=== PATIENT | female | born 1985 | race Caucasian/White ===

== ENCOUNTER 2017-05-18 08:51 | Day surgery (SDC) | payer BC ==
[~2017-05-18 08:51] MED LIST: RINGER'S SOLUTION,LACTATED 1,000 ML IV PRN
[2017-05-18 09:12] LABS: Hematocrit 40.6 % (37.0-47.0); Hemoglobin 13.6 gm/dL (12.5-16.0); Mean Cell Volume 89.2 fl (78-100); Mean Corpuscular Hemoglobin 29.9 pg (27-31); Mean Corpuscular Hgb Conc 33.5 g/dl (32-36); Mean Platelet Volume 9.6 fl (6.0-9.5); Neutrophil # 2.1 K/mm3 (1.3-6.0); Neutrophil % 42.6 % (42-75.0); Platelet Count 250 K/mm3 (150-450); Red Blood Count 4.55 M/mm3 (4.2-5.4); Red Cell Distribution Width 12.4 % (11.5-14.0)
[2017-05-18] MEDS ORDERED: RINGER'S SOLUTION,LACTATED 1,000 ML IV ONE ×4 (09:29→14:11)
[2017-05-18] MEDS ORDERED: LIDOCAINE HCL/EPINEPHRINE 30 ML VIAL IJ ONE ×2 (10:50)
[2017-05-18] MEDS ORDERED: IBUPROFEN 600 MG TABLET PO PRN (11:54)
[2017-05-18] MEDS ORDERED: oxyCODONE HCL/ACETAMINOPHEN 1 TAB TABLET PO PRN (11:54)
[2017-05-18] MEDS ORDERED: HYDROmorphone HCL 2 MG/ML VIAL IV PRN (12:09)
[2017-05-18] MEDS ORDERED: HYDROmorphone HCL 1 MG/ML DISP.SYRIN IV PRN (12:30)
--- NOTE | 2017-05-18 13:30 | OR ---
Operative Report - Dictated Report Narrative: Operative Report 05/18/2017 Laparoscopic Bilateral Salpingectomy Preoperative Diagnosis: Menometrorrhagia, Desires Permanent Sterilization Postoperative Diagnosis: Menometrorrhagia, Desires Permanent Sterilization Procedure: Laparoscopic Bilateral Salpingectomy, Novasure Endometrial Ablation, Hysteroscopy Surgeon: Ruth Olivares M.D. Anesthesia: Deep Mckeon CRNA, general anesthesia with endotracheal tube Findings: Bilateral Ovaries grossly normal in appearance with the exception that they were slightly enlarged. Normal appearing liver edge. Normal appearing uterus and tubes. Uterine sound 11cm. Cervical length 5.5 cm. Cavity length 5.5 cm. Cavity Width 4 cm. Power 121. Time 64 seconds. Fluids: 1000 ml EBL: Minimal Drains: None Pathology: Bilateral Fallopian Tubes Complications: None Condition: Stable Procedure: The patient was taken to the operating room with IV fluids running. General anesthesia was induced. She was placed in the dorsal lithotomy position. She was prepped and draped in the normal sterile fashion. A speculum was placed into the vagina. The anterior lip of the cervix was grasped with a single- tooth tenaculum. A [employer]works uterine manipulator was inserted into the endometrial cavity. The tenaculum was removed. The bladder was drained with a catheter. Clear yellow urine was drained. The speculum was removed from the vagina. Attention was then turned to the abdomen. The umbilicus was injected with 1% Marcaine with epinephrine. A vertical 12 mm skin incision was made in the umbilicus. It is of note that there was a small umbilical hernia. Sharp dissection was continued to the fascia. A vertical fascial incision was made with the scalpel. Continued sharp and blunt dissection was performed using Metzenbaum scissors. The peritoneum was identified and entered sharply. 0 Vicryl anchor stitches were placed in the fascia to anchor the Melendez trocar as it was placed into the abdomen. The abdomen was insufflated with CO2 to a pressure of 15 mmHg. The pelvis was surveyed. Attention was turned to the left lower quadrant. The inferior epigastric artery and vein were visualized laparoscopically and the site of the trocar was placed in the left lower quadrant to avoid these vessels. The area was injected with local anesthetic and a 5 mm skin incision was made with the scalpel. A 5 mm trocar was placed in the left lower quadrant under direct visualization. The uterus was grossly normal in appearance. The right tube and ovary were inspected and were grossly normal in appearance. The left tube and ovary were inspected and were grossly normal in appearance. The right fallopian tube was identified and was grasped and elevated. Thunderbeat was used to cauterize and transect along the mesosalpinx and the tube was amputated from the cornual angle and mesosalpinx.. This was repeated on the left fallopian tube. The abdomen was desufflated through the trocars. The trocar was removed. The fascial 0 Vicryl stitches were used to close the fascial incision and a separate 0 vicryl firgure of 8 stitch was placed for excellent reapproximation of the fascial incision. The site was hemostatic. The skin incision was reapproximated using 4-0 Monocryl for excellent hemostasis and approximation. Attention was then turned to the vagina. Side-arm speculum was placed into the vagina. The [employer]works uterine manipulator was removed from the cervix. The anterior lip of the cervix was grasped with the single-tooth tenaculum. The uterine sound was introduced into the endometrial cavity. The depth was 11 cm. The cervix was dilated with Bert dilators. The hysteroscope was introduced into the uterine cavity. Cavity was distended with normal saline. The uterine cavity was grossly normal in appearance. The hysteroscope was removed from the cavity. During removal of the hysteroscope the cervical length was measured using the hysteroscope. The cervical length was 5.5 cm. The cavity length was calculated to be 5.5 cm. The NovaSure endometrial ablation device was introduced in the cavity with the setting of 5.5 cm for the length of the cavity. After maneuvering the device the cavity width was found to be 4 cm. the cavity was tested for any perforations and was cleared. The device was started and cauterization was performed. The power was 121. The cauterization time was 64 seconds. The device was removed from the cavity. The hysteroscope was once again introduced into the cavity. The entire cavity was cauterized. The hysteroscope was removed. The single-tooth tenaculum was removed from the anterior lip of the cervix. Site was hemostatic. The speculum was removed from the vagina. Sponge counts were correct x 2. The patient tolerated the procedure well.
[2017-05-18 16:14] VITALS: BP 91/54
== END 2017-05-18 08:52 | disposition home or self-care (01) ==
LOC: AMB 08:51
PROVIDERS: ATTEND Obstetrics & Gynecology
PROC: 0UB74ZZ Excision of Bilateral Fallopian Tubes, Percutaneous Endoscopic Approach (ICD-10-PCS; principal; 2017-05-18 10:10)
PROC: 0U5B8ZZ Destruction of Endometrium, Via Natural or Artificial Opening Endoscopic (ICD-10-PCS; 2017-05-18 10:10)
DX: Z30.2 Encounter for sterilization (principal); N92.1 Excessive and frequent menstruation with irregular cycle; F17.200 Nicotine dependence, unspecified, uncomplicated; Z68.22 Body mass index [BMI] 22.0-22.9, adult